=== PATIENT | male | born 1965 | race Caucasian/White ===

== ENCOUNTER → 2017-08-22 | Outpatient (CLI) | payer BC ==
[~2017-08-22] MED LIST: LEVO750T26 PO; LEVO75TA PO; [UNRECOGNIZED DRUG - CODE] SQ
== END | disposition home or self-care (01) ==
LOC: RAD 08:30
PROVIDERS: ATTEND Internal Medicine Hematology & Oncology
DX: Z45.2 Encounter for adjustment and management of vascular access device (principal); C85.91 Non-Hodgkin lymphoma, unspecified, lymph nodes of head, face, and neck
CPT/HCPCS: 36569; 76937; 77001; C1751

== ENCOUNTER → 2018-09-19 | Outpatient (CLI) | payer BC | END | disposition home or self-care (01) | LOC: RAD 13:38 | PROVIDERS: ATTEND Internal Medicine | DX: Z85.79 Personal history of other malignant neoplasms of lymphoid, hematopoietic and related tissues (principal); R59.1 Generalized enlarged lymph nodes; N13.30 Unspecified hydronephrosis | CPT/HCPCS: 70490; 71250; 74176 ==

== ENCOUNTER → 2018-09-21 | Outpatient (CLI) | payer BC ==
[~2018-09-21] MED LIST changes: +LIDOCAINE-MPF 1%, 5ML ONE
== END | disposition home or self-care (01) ==
LOC: RAD 13:55
PROVIDERS: ATTEND Internal Medicine Hematology & Oncology
DX: Z45.2 Encounter for adjustment and management of vascular access device (principal); C85.91 Non-Hodgkin lymphoma, unspecified, lymph nodes of head, face, and neck
CPT/HCPCS: 36569; 76937; 77001; C1751

== ENCOUNTER 2018-10-20 09:34 | Emergency (ER) | payer BC, MEDICARE ==
[~2018-10-20] VITALS: Ht 170.2 cm; Wt 76.0 kg
[~2018-10-20 09:34] MED LIST changes: -LIDOCAINE-MPF 1%, 5ML ONE
[2018-10-20] MEDS ORDERED: [UNRECOGNIZED DRUG - CODE] PO (10:54)
[2018-10-20 11:08] LABS: BASOPHILS # (AUTO) 0.01 x10^3/uL (0-0.1); BASOPHILS % (AUTO) 0 % (0-1); EOSINOPHILS # (AUTO) 0.13 x10^3/uL (0-0.4); EOSINOPHILS % (AUTO) 3 % (1-7); LYMPHOCYTES # (AUTO) 0.46 x10^3/uL (1-3.4); LYMPHOCYTES % (AUTO) 11 % (22-44); MD NO; MEAN CORPUSCULAR HEMOGLOBIN 31.6 pg (27.5-34.5); MEAN CORPUSCULAR HGB CONC 33.5 g/dL (33.2-36.2); MEAN CORPUSCULAR VOLUME 94.2 fL (81-97); MEAN PLATELET VOLUME 6.9 fL (7.4-10.4); MONOCYTES # (AUTO) 0.53 x10^3/uL (0.2-0.8); MONOCYTES % (AUTO) 13 % (2-9); NEUTROPHILS # (AUTO) 3.09 x10^3/uL (1.8-6.8); NEUTROPHILS % (AUTO) 73 % (42-75); PLATELET COUNT 181 x10^3/uL (130-400); RED BLOOD COUNT 4.12 x10^6/uL (4.38-5.82); RED CELL DISTRIBUTION WIDTH 13.2 % (9.4-14.8)
[2018-10-20 11:14] LABS: ALANINE AMINOTRANSFERASE 32 U/L (12-78); ALBUMIN 3.6 g/dL (3.4-5.0); CALCIUM 12.3 mg/dL (8.5-10.1); CREATININE 2.26 mg/dL (0.7-1.3)
[2018-10-20 11:20] LABS: ALKALINE PHOSPHATASE 81 U/L (45-117); BILIRUBIN,TOTAL 0.8 mg/dL (0.2-1.0); TOTAL PROTEIN 7.3 g/dL (6.4-8.2)
[2018-10-20 11:24] LABS: ANION GAP 7 mmol/L (5-15); CHLORIDE 105 mmol/L (98-107)
[2018-10-20] MEDS ORDERED: SODIUM CHLORIDE 0.9% 1,000ML IVBOLUS ONE (11:30)
[2018-10-20 12:24] VITALS: BP 142/76
== END 2018-10-20 13:00 | disposition home or self-care (01) ==
LOC: ED 12:45
DX: E83.52 Hypercalcemia (principal); I12.9 Hypertensive chronic kidney disease with stage 1 through stage 4 chronic kidney disease, or unspecified chronic kidney disease; N18.9 Chronic kidney disease, unspecified; R94.4 Abnormal results of kidney function studies; R79.89 Other specified abnormal findings of blood chemistry
CPT/HCPCS: 36415; 80053; 83735; 84100; 85025; 93005; 96360; 99284; J7030

== ENCOUNTER 2018-10-25 22:57 | Inpatient (IN) | payer BC, MEDICARE ==
[~2018-10-25] VITALS: Ht 170.2 cm; Wt 80.6 kg
[~2018-10-25 22:57] MED LIST changes: +[UNRECOGNIZED DRUG - CODE] PO
[2018-10-25] MEDS ORDERED: ACETAMINOPHEN 500 MG TABLET ONE (23:04)
[2018-10-25] MEDS ORDERED: ACETAMINOPHEN 500 MG TABLET PO ONE (23:30)
[2018-10-25] MEDS ORDERED: SODIUM CHLORIDE 0.9% 1,000ML IVBOLUS ONE (23:30)
[2018-10-25 23:37] LABS: BASOPHILS # (AUTO) 0.01 x10^3/uL (0-0.1); BASOPHILS % (AUTO) 0 % (0-1); EOSINOPHILS # (AUTO) 0.03 x10^3/uL (0-0.4); EOSINOPHILS % (AUTO) 1 % (1-7); LYMPHOCYTES # (AUTO) 0.16 x10^3/uL (1-3.4); LYMPHOCYTES % (AUTO) 4 % (22-44); MD NO; MEAN CORPUSCULAR HEMOGLOBIN 32.4 pg (27.5-34.5); MEAN CORPUSCULAR HGB CONC 34.3 g/dL (33.2-36.2); MEAN CORPUSCULAR VOLUME 94.5 fL (81-97); MEAN PLATELET VOLUME 6.9 fL (7.4-10.4); MONOCYTES # (AUTO) 0.08 x10^3/uL (0.2-0.8); MONOCYTES % (AUTO) 2 % (2-9); NEUTROPHILS % (AUTO) 94 % (42-75); PLATELET COUNT 165 x10^3/uL (130-400); RED BLOOD COUNT 3.81 x10^6/uL (4.38-5.82); RED CELL DISTRIBUTION WIDTH 14.9 % (9.4-14.8)
[2018-10-25 23:48] LABS: ALBUMIN 3.6 g/dL (3.4-5.0); ANION GAP 14 mmol/L (5-15); CALCIUM 11.3 mg/dL (8.5-10.1); CHLORIDE 106 mmol/L (98-107); CREATININE 2.02 mg/dL (0.7-1.3)
[2018-10-26 00:29] LABS: RAPID INFLUENZA A Negative (Negative); RAPID INFLUENZA B Negative (Negative)
[2018-10-26 00:30] LABS: MICROSCOPIC NOT IND
[2018-10-26] MEDS ORDERED: SODIUM CHLORIDE 0.9% 1,000ML IVBOLUS ONE (00:30)
[2018-10-26] MEDS ORDERED: CEFTRIAXONE 1,000 MG IM ONE (00:30)
[2018-10-26] MEDS ORDERED: CEFTRIAXONE PMX 1GM/50ML 50 ML ONE (00:47)
[2018-10-26 00:49] LABS: CULTURE INDICATED? NO
[2018-10-26 01:40] VITALS: BP 114/70
[2018-10-26 02:00] VITALS: BP 114/70
[2018-10-26] MEDS ORDERED: LABETALOL 5MG/ML, 20ML IVPush PRN (03:00)
[2018-10-26] MEDS ORDERED: OXYcodone IR 5MG TABLET PO PRN (03:00)
[2018-10-26] MEDS ORDERED: POLYETHYLENE GLYCOL 17 GM PACKET PO PRN (03:00)
[2018-10-26] MEDS ORDERED: hydrALAzine 20 MG/ML, 1ML IVPush PRN (03:00)
[2018-10-26] MEDS ORDERED: morphine SULFATE 10 MG/ML, 1ML IVPush PRN (03:00)
[2018-10-26] MEDS ORDERED: BISACODYL 10 MG SUPP PR PRN (03:00)
[2018-10-26] MEDS ORDERED: ONDANSETRON ODT 4 MG PO PRN (03:00)
[2018-10-26] MEDS ORDERED: PROMETHAZINE 25 MG/ML, 1ML IM PRN (03:00)
[2018-10-26] MEDS ORDERED: ONDANSETRON 2MG/ML, 2ML IVPush PRN (03:00)
[2018-10-26] MEDS ORDERED: CYCLOBENZAPRINE 10 MG TABLET PO PRN (03:00)
[2018-10-26] MEDS: HEPARIN 5,000 UNITS/ML, 1ML SQ SCH ×3 (03:35→19:50)
[2018-10-26] MEDS: CEFEPIME 2 GM in DEXTROSE 5% 100 ML IV SCH ×2 (03:35→15:49)
[2018-10-26] MEDS: SODIUM CHLORIDE 0.9% 1,000 ML IV SCH ×3 (03:35→20:36)
[2018-10-26 03:52] LABS: FREE T4 (FREE THYROXINE) 1.5 ng/dL (0.76-1.46); THYROID STIMULATING HORMONE 2.81 mIU/L (0.358-3.740)
[2018-10-26 07:05] VITALS: BP 112/68
[2018-10-26] MEDS ORDERED: MAGNESIUM SULFATE PMX 2GM/50ML 50 ML IV ONE (09:00)
[2018-10-26] MEDS: SENNA/DOCUSATE TABLET PO SCH (09:00)
[2018-10-26] MEDS: ACETAMINOPHEN 500 MG TABLET PO PRN ×2 (09:16→19:50)
[2018-10-26 10:02] LABS: ALANINE AMINOTRANSFERASE 25 U/L (12-78); ALBUMIN 2.9 g/dL (3.4-5.0); ANION GAP 8 mmol/L (5-15); CALCIUM 9.3 mg/dL (8.5-10.1); CHLORIDE 108 mmol/L (98-107); CREATININE 2.05 mg/dL (0.7-1.3)
[2018-10-26 10:04] LABS: ALKALINE PHOSPHATASE 48 U/L (45-117); BILIRUBIN,TOTAL 0.4 mg/dL (0.2-1.0); TOTAL PROTEIN 5.9 g/dL (6.4-8.2)
[2018-10-26 10:08] LABS: BASOPHILS % (AUTO) 0 % (0-1); EOSINOPHILS # (AUTO) 0.01 x10^3/uL (0-0.4); EOSINOPHILS % (AUTO) 0 % (1-7); LYMPHOCYTES # (AUTO) 0.12 x10^3/uL (1-3.4); LYMPHOCYTES % (AUTO) 4 % (22-44); MD NO; MEAN CORPUSCULAR HEMOGLOBIN 32.7 pg (27.5-34.5); MEAN CORPUSCULAR HGB CONC 34.7 g/dL (33.2-36.2); MEAN PLATELET VOLUME 6.7 fL (7.4-10.4); MONOCYTES # (AUTO) 0.15 x10^3/uL (0.2-0.8); MONOCYTES % (AUTO) 5 % (2-9); NEUTROPHILS # (AUTO) 2.73 x10^3/uL (1.8-6.8); NEUTROPHILS % (AUTO) 91 % (42-75); PLATELET COUNT 143 x10^3/uL (130-400); RED BLOOD COUNT 3.23 x10^6/uL (4.38-5.82); RED CELL DISTRIBUTION WIDTH 15.1 % (9.4-14.8)
[2018-10-26 14:44] VITALS: BP 110/65
[2018-10-26 20:32] VITALS: BP 125/75
[2018-10-27 02:35] VITALS: BP 111/73
[2018-10-27] MEDS: CEFEPIME 2 GM in DEXTROSE 5% 100 ML IV SCH ×2 (02:37→15:48)
[2018-10-27] MEDS: HEPARIN 5,000 UNITS/ML, 1ML SQ SCH ×3 (02:37→19:32)
[2018-10-27] MEDS: SODIUM CHLORIDE 0.9% 1,000 ML IV SCH ×2 (02:38→11:07)
[2018-10-27 05:07] LABS: MEAN CORPUSCULAR HEMOGLOBIN 33.2 pg (27.5-34.5); MEAN CORPUSCULAR VOLUME 94.9 fL (81-97); MEAN PLATELET VOLUME 7.3 fL (7.4-10.4); PLATELET COUNT 124 x10^3/uL (130-400); RED BLOOD COUNT 3.21 x10^6/uL (4.38-5.82); RED CELL DISTRIBUTION WIDTH 16.1 % (9.4-14.8)
[2018-10-27 05:13] LABS: CHLORIDE 110 mmol/L (98-107)
[2018-10-27 05:21] LABS: ALANINE AMINOTRANSFERASE 28 U/L (12-78); ALBUMIN 2.8 g/dL (3.4-5.0); ALKALINE PHOSPHATASE 47 U/L (45-117); ANION GAP 7 mmol/L (5-15); BILIRUBIN,TOTAL 0.4 mg/dL (0.2-1.0); CREATININE 1.79 mg/dL (0.7-1.3)
[2018-10-27 05:22] LABS: CHOL/HDL RATIO 6.2; CHOLESTEROL, TOTAL 131 mg/dL (140-239); HDL CHOL % 16 % (26-37); HDL CHOLESTEROL (DIRECT) 21 mg/dL (40-60); LDL CHOLESTEROL,CALCULATED 73 mg/dL (54-169); LDL/HDL RATIO 3.5 (0.5-3.0); TRIGLYCERIDES 186 mg/dL (50-200); VLDL CHOLESTEROL 37 mg/dL (0-25)
[2018-10-27 05:52] LABS: BASOPHILS # (AUTO) 0.01 x10^3/uL (0-0.1); BASOPHILS % (AUTO) 0 % (0-1); EOSINOPHILS # (AUTO) 0.02 x10^3/uL (0-0.4); EOSINOPHILS % (AUTO) 1 % (1-7); LYMPHOCYTES # (AUTO) 0.36 x10^3/uL (1-3.4); LYMPHOCYTES % (AUTO) 17 % (22-44); MD SCAN; MONOCYTES # (AUTO) 0.39 x10^3/uL (0.2-0.8); MONOCYTES % (AUTO) 18 % (2-9); NEUTROPHILS # (AUTO) 1.39 x10^3/uL (1.8-6.8); NEUTROPHILS % (AUTO) 64 % (42-75)
[2018-10-27 07:36] VITALS: BP 114/73
[2018-10-27] MEDS: SENNA/DOCUSATE TABLET PO SCH (09:00)
[2018-10-27 12:40] VITALS: BP 125/84
[2018-10-27 19:42] VITALS: BP 107/73
[2018-10-28] MEDS: CEFEPIME 2 GM in DEXTROSE 5% 100 ML IV SCH (02:48)
[2018-10-28 03:00] VITALS: BP 115/73
[2018-10-28] MEDS: HEPARIN 5,000 UNITS/ML, 1ML SQ SCH ×2 (03:00→11:00)
[2018-10-28 04:42] LABS: ALBUMIN 2.8 g/dL (3.4-5.0); ANION GAP 6 mmol/L (5-15); CALCIUM 8.7 mg/dL (8.5-10.1); CHLORIDE 111 mmol/L (98-107); CREATININE 1.55 mg/dL (0.7-1.3)
[2018-10-28 05:47] LABS: MEAN CORPUSCULAR HEMOGLOBIN 32.3 pg (27.5-34.5); MEAN CORPUSCULAR HGB CONC 34.2 g/dL (33.2-36.2); MEAN CORPUSCULAR VOLUME 94.3 fL (81-97); MEAN PLATELET VOLUME 7.6 fL (7.4-10.4); PLATELET COUNT 131 x10^3/uL (130-400); RED BLOOD COUNT 3.14 x10^6/uL (4.38-5.82); RED CELL DISTRIBUTION WIDTH 15.8 % (9.4-14.8)
[2018-10-28 06:34] LABS: BASOPHILS # (AUTO) 0.01 x10^3/uL (0-0.1); BASOPHILS % (AUTO) 1 % (0-1); EOSINOPHILS # (AUTO) 0.07 x10^3/uL (0-0.4); EOSINOPHILS % (AUTO) 3 % (1-7); LYMPHOCYTES # (AUTO) 0.34 x10^3/uL (1-3.4); LYMPHOCYTES % (AUTO) 14 % (22-44); MD SCAN; MONOCYTES # (AUTO) 0.47 x10^3/uL (0.2-0.8); MONOCYTES % (AUTO) 20 % (2-9); NEUTROPHILS # (AUTO) 1.47 x10^3/uL (1.8-6.8); NEUTROPHILS % (AUTO) 62 % (42-75)
[2018-10-28] MEDS: SENNA/DOCUSATE TABLET PO SCH (08:00)
[2018-10-28 09:53] VITALS: BP 113/75
== END 2018-10-28 15:30 | disposition home or self-care (01) | DRG 871 ==
LOC: ED 23:24 → EDIP 10-26 01:02 → 3NW 10-26 01:49
PROVIDERS: ADMIT Internal Medicine; ATTEND Hospitalist
DX: A41.9 Sepsis, unspecified organism (principal); E43 Unspecified severe protein-calorie malnutrition; N17.0 Acute kidney failure with tubular necrosis; C85.90 Non-Hodgkin lymphoma, unspecified, unspecified site; E87.2 Acidosis; J90 Pleural effusion, not elsewhere classified; D64.9 Anemia, unspecified; R00.0 Tachycardia, unspecified; E83.52 Hypercalcemia; Z92.21 Personal history of antineoplastic chemotherapy; Z68.27 Body mass index [BMI] 27.0-27.9, adult
CPT/HCPCS: 36415; 71045; 76770; 80048; 80053; 80061; 81003; 82040; 82330; 83605; 83735; 84100; 84439; 84443; 85025; 87040; 87400; 93005; 99285; G0378; J0696; J1644; J3475; J7030

== ENCOUNTER 2018-11-19 13:46 | Emergency (ER) | payer BC, MEDICARE ==
[~2018-11-19] VITALS: Ht 170.2 cm; Wt 75.0 kg
[2018-11-19 15:03] LABS: BASOPHILS % (AUTO) 0 % (0-1); EOSINOPHILS # (AUTO) 0.31 x10^3/uL (0-0.4); EOSINOPHILS % (AUTO) 7 % (1-7); LYMPHOCYTES # (AUTO) 0.28 x10^3/uL (1-3.4); LYMPHOCYTES % (AUTO) 7 % (22-44); MD NO; MEAN CORPUSCULAR HGB CONC 34.6 g/dL (33.2-36.2); MEAN CORPUSCULAR VOLUME 95.6 fL (81-97); MEAN PLATELET VOLUME 6.4 fL (7.4-10.4); MONOCYTES # (AUTO) 0.27 x10^3/uL (0.2-0.8); MONOCYTES % (AUTO) 6 % (2-9); NEUTROPHILS # (AUTO) 3.38 x10^3/uL (1.8-6.8); NEUTROPHILS % (AUTO) 80 % (42-75); PLATELET COUNT 232 x10^3/uL (130-400); RED BLOOD COUNT 3.63 x10^6/uL (4.38-5.82); RED CELL DISTRIBUTION WIDTH 16.4 % (9.4-14.8)
[2018-11-19 15:12] LABS: ALANINE AMINOTRANSFERASE 24 U/L (12-78); ALBUMIN 3.5 g/dL (3.4-5.0); ANION GAP 6 mmol/L (5-15); CALCIUM 12.4 mg/dL (8.5-10.1); CHLORIDE 104 mmol/L (98-107); CREATININE 2.18 mg/dL (0.7-1.3)
[2018-11-19 15:14] LABS: ALKALINE PHOSPHATASE 73 U/L (45-117); BILIRUBIN,TOTAL 0.6 mg/dL (0.2-1.0); TOTAL PROTEIN 7.3 g/dL (6.4-8.2)
[2018-11-19] MEDS ORDERED: SODIUM CHLORIDE FLUSH 10ML SYR IVF ONE ×2 (15:30→16:00)
[2018-11-19] MEDS ORDERED: SODIUM CHLORIDE 0.9% 1,000 ML IV ONE (15:31)
[2018-11-19] MEDS ORDERED: SODIUM CHLORIDE 0.9% 1,000ML IVBOLUS ONE (16:00)
[2018-11-19] MEDS ORDERED: LIDOCAINE-MPF 1%, 5ML ONE (17:32)
[2018-11-19 18:33] VITALS: BP 128/76
== END 2018-11-19 19:29 | disposition home or self-care (01) ==
LOC: ED 16:16
DX: J91.0 Malignant pleural effusion (principal); E83.52 Hypercalcemia
CPT/HCPCS: 32555; 36415; 71046; 80053; 82150; 82945; 83615; 83880; 83986; 84157; 85025; 87070; 87205; 89051; 96360; 99285; J7030